=== PATIENT | male | born 2000 | race African-American/Black ===

== ENCOUNTER 2023-02-28 23:29 | Inpatient (IN) | payer OTHER ==
[2023-03-01 00:11] VITALS: BMI 38.0
[2023-03-01] MEDS ORDERED: POLYETHYLENE GLYCOL (HEALTHYLAX) 3350 17 GM PACKET PO PRN (03:26)
[2023-03-01] MEDS ORDERED: IBUPROFEN 600 MG TABLET (FP) PO PRN (03:26)
[2023-03-01] MEDS ORDERED: IBUPROFEN 400 MG TABLET (FP) PO PRN (03:26)
[2023-03-01] MEDS ORDERED: METHOCARBAMOL 500 MG TABLET PO PRN (03:26)
[2023-03-01] MEDS ORDERED: ONDANSETRON *ODT* 4 MG TABLET SL PRN (03:26)
[2023-03-01] MEDS ORDERED: ACETAMINOPHEN 325 MG TABLET (FP) PO PRN (03:26)
[2023-03-01] MEDS ORDERED: MAG HYDROX/AL HYDROX/SIMETH 30 ML UNIT-DOSE CUP PO PRN (03:26)
[2023-03-01] MEDS ORDERED: DICYCLOMINE HCL 10 MG CAPSULE PO PRN (03:26)
[2023-03-01] MEDS ORDERED: LOPERAMIDE HCL 2 MG CAPSULE PO PRN (03:26)
[2023-03-01] MEDS ORDERED: MAGNESIUM HYDROX 2400MG/30ML ORAL SUSPENSION 30 ML CUP PO PRN (03:26)
[2023-03-01] MEDS ORDERED: BENZONATATE 200 MG CAPSULE PO PRN (03:26)
[2023-03-01] MEDS ORDERED: NALOXONE HCL (KLOXXADO) 8 MG SPRAY NS PRN (03:26)
[2023-03-01] MEDS ORDERED: BISMUTH SUBSALICYLATE 524 MG/30 ML PO PRN (03:26)
[2023-03-01] MEDS ORDERED: NICOTINE 10 MG CARTRIDGE (INHALER) IH PRN (03:26)
[2023-03-01] MEDS ORDERED: NALOXONE HCL 0.4 MG/ML VIAL IM PRN (03:26)
[2023-03-01] MEDS ORDERED: BENZOCAINE/MENTHOL (CHLORASEPTIC ) LOZENGE MM PRN (03:26)
[2023-03-01] MEDS ORDERED: guaiFENesin 600 MG TABLET.ER (FP) PO PRN (03:26)
[2023-03-01] MEDS ORDERED: diazePAM 5 MG TABLET PO PRN (09:32)
[2023-03-01] MEDS: diazePAM 5 MG TABLET PO SCH ×3 (10:22→22:05)
[2023-03-01] MEDS: PRENATAL VITAMINS W/ FOLIC ACID TABLET (FP) PO SCH (10:22)
[2023-03-01] MEDS: NICOTINE 14 MG/24 HOURS TOPICAL PATCH TD SCH (10:23)
[2023-03-01 11:51] LABS: HIV INTERPRETATION NEGATIVE (NEGATIVE)
[2023-03-01] MEDS: ESTRADIOL 2 MG TABLET (NON-FORMULARY) PO SCH (15:16)
[2023-03-01] MEDS: THIAMINE HCL 100 MG TABLET (FP) PO SCH (22:04)
[2023-03-01] MEDS: SPIRONOLACTONE 25 MG TABLET PO SCH (22:04)
[2023-03-01] MEDS: MELATONIN 5 MG TABLETS PO SCH (22:04)
[2023-03-02] MEDS: diazePAM 5 MG TABLET PO SCH ×4 (05:33→22:07)
[2023-03-02] MEDS: SPIRONOLACTONE 25 MG TABLET PO SCH ×2 (10:11→22:07)
[2023-03-02] MEDS: NICOTINE 14 MG/24 HOURS TOPICAL PATCH TD SCH (10:12)
[2023-03-02] MEDS: ESTRADIOL 2 MG TABLET (NON-FORMULARY) PO SCH (10:12)
[2023-03-02] MEDS: PRENATAL VITAMINS W/ FOLIC ACID TABLET (FP) PO SCH (10:12)
[2023-03-02] MEDS: MELATONIN 5 MG TABLETS PO SCH (22:06)
[2023-03-02] MEDS: THIAMINE HCL 100 MG TABLET (FP) PO SCH (22:07)
[2023-03-03] MEDS: diazePAM 5 MG TABLET PO SCH ×3 (05:36→22:05)
[2023-03-03] MEDS: PRENATAL VITAMINS W/ FOLIC ACID TABLET (FP) PO SCH (10:09)
[2023-03-03] MEDS: SPIRONOLACTONE 25 MG TABLET PO SCH ×2 (10:09→22:05)
[2023-03-03] MEDS: NICOTINE 14 MG/24 HOURS TOPICAL PATCH TD SCH (10:11)
[2023-03-03] MEDS: ESTRADIOL 2 MG TABLET (NON-FORMULARY) PO SCH (10:43)
[2023-03-03] MEDS: MELATONIN 5 MG TABLETS PO SCH (22:05)
[2023-03-03] MEDS: THIAMINE HCL 100 MG TABLET (FP) PO SCH (22:06)
[2023-03-04] MEDS: diazePAM 5 MG TABLET PO SCH ×2 (05:19→17:32)
[2023-03-04] MEDS: ESTRADIOL 2 MG TABLET (NON-FORMULARY) PO SCH (10:02)
[2023-03-04] MEDS: SPIRONOLACTONE 25 MG TABLET PO SCH ×2 (10:02→22:17)
[2023-03-04] MEDS: PRENATAL VITAMINS W/ FOLIC ACID TABLET (FP) PO SCH (10:02)
[2023-03-04] MEDS: NICOTINE 14 MG/24 HOURS TOPICAL PATCH TD SCH (10:02)
[2023-03-04] MEDS: MELATONIN 5 MG TABLETS PO SCH (22:14)
[2023-03-04] MEDS: THIAMINE HCL 100 MG TABLET (FP) PO SCH (22:14)
[2023-03-05] MEDS ORDERED: diazePAM 5 MG TABLET PO ONE (06:00)
[2023-03-05 08:55] VITALS: BP 119/63; PULSE 83; RESP 18; TEMP 98.2
[2023-03-05] MEDS: SPIRONOLACTONE 25 MG TABLET PO SCH (09:23)
[2023-03-05] MEDS: PRENATAL VITAMINS W/ FOLIC ACID TABLET (FP) PO SCH (09:23)
[2023-03-05] MEDS: ESTRADIOL 2 MG TABLET (NON-FORMULARY) PO SCH (09:24)
[2023-03-05] MEDS: NICOTINE 14 MG/24 HOURS TOPICAL PATCH TD SCH (09:24)
== END 2023-03-05 10:06 | disposition other institution (70) | DRG 775 ==
LOC: YASAS 23:29 → UNDOADMIN 03-01 02:12 → Y3N 03-01 02:12
PROVIDERS: ADMIT Allergy & Immunology; ATTEND Surgery
PROC: HZ2ZZZZ Detoxification Services for Substance Abuse Treatment (ICD-10-PCS; principal; 2023-03-01)
DX: F10.230 Alcohol dependence with withdrawal, uncomplicated (principal); F17.210 Nicotine dependence, cigarettes, uncomplicated; F41.8 Other specified anxiety disorders; F32.A Depression, unspecified; F90.9 Attention-deficit hyperactivity disorder, unspecified type; F64.0 Transsexualism; J45.909 Unspecified asthma, uncomplicated; Z62.810 Personal history of physical and sexual abuse in childhood; Z86.59 Personal history of other mental and behavioral disorders; Z79.890 Hormone replacement therapy
CPT/HCPCS: 36415; 86780; 87389; 87635; 93005; 93010

== ENCOUNTER 2023-05-01 16:19 | Inpatient (IN) | payer OTHER ==
[2023-05-01 17:32] VITALS: BMI 40.8
[2023-05-01] MEDS ORDERED: IBUPROFEN 600 MG TABLET (FP) PO PRN (21:01)
[2023-05-01] MEDS ORDERED: LOPERAMIDE HCL 2 MG CAPSULE PO PRN (21:01)
[2023-05-01] MEDS ORDERED: MAGNESIUM HYDROX 2400MG/30ML ORAL SUSPENSION 30 ML CUP PO PRN (21:01)
[2023-05-01] MEDS ORDERED: P-EPHED 60MG/TRIPROLIDI 2.5MG TABLET PO PRN (21:01)
[2023-05-01] MEDS ORDERED: MAG HYDROX/AL HYDROX/SIMETH 30 ML UNIT-DOSE CUP PO PRN (21:01)
[2023-05-01] MEDS ORDERED: BENZOCAINE/MENTHOL (CHLORASEPTIC ) LOZENGE MM PRN (21:01)
[2023-05-01] MEDS ORDERED: BENZONATATE 200 MG CAPSULE PO PRN (21:01)
[2023-05-01] MEDS ORDERED: ACETAMINOPHEN 325 MG TABLET (FP) PO PRN (21:01)
[2023-05-01] MEDS ORDERED: IBUPROFEN 400 MG TABLET (FP) PO PRN (21:01)
[2023-05-01] MEDS ORDERED: guaiFENesin 600 MG TABLET.ER (FP) PO PRN (21:01)
[2023-05-01] MEDS ORDERED: POLYETHYLENE GLYCOL (HEALTHYLAX) 3350 17 GM PACKET PO PRN (21:01)
[2023-05-01] MEDS ORDERED: AMMONIUM LACTATE 12% LOTION 225 GM BOTTLE TP PRN (21:01)
[2023-05-01] MEDS ORDERED: COLLOIDAL OATMEAL 1 BAR EACH TP PRN (21:01)
[2023-05-01] MEDS ORDERED: NICOTINE POLACRILEX 2 MG GUM BUC PRN (21:01)
[2023-05-01] MEDS: MELATONIN 5 MG TABLETS PO SCH (22:24)
[2023-05-01] MEDS: THIAMINE HCL 100 MG TABLET (FP) PO SCH (22:24)
[2023-05-01 23:00] VITALS: RESP 18
[2023-05-02] MEDS: PRENATAL VITAMINS W/ FOLIC ACID TABLET (FP) PO SCH (10:01)
[2023-05-02 11:08] LABS: HEMATOCRIT 39.7 % (35.4-49); HEMOGLOBIN 13.5 GM/dL (11.7-16.9); MCH 28.8 pg (25.7-33.7); MEAN CELL VOLUME 84.7 fl (80-96); MEAN PLT VOLUME 7.9 fl (7.5-11.1); PLATELET COUNT 245 10^3/uL (134-434); RBC 4.69 M/mm3 (4.00-5.60); RDW 14.2 % (11.9-15.9); WHITE BLOOD COUNT 5.9 K/mm3 (4.0-10.0)
[2023-05-02 11:17] LABS: POTASSIUM 4.4 mmol/L (3.5-5.1)
[2023-05-02 11:19] LABS: CALCIUM 8.6 mg/dL (8.5-10.1)
[2023-05-02 11:20] LABS: ALBUMIN 3.1 g/dl (3.4-5.0); BLOOD UREA NITROGEN 12.2 mg/dL (7-18)
[2023-05-02 11:23] LABS: CREATININE 0.8 mg/dL (0.55-1.3)
[2023-05-02 11:24] LABS: BILIRUBIN,TOTAL 0.1 mg/dL (0.2-1)
[2023-05-02] MEDS: GABAPENTIN 300 MG CAPSULE PO SCH (19:59)
[2023-05-02 21:11] LABS: URINE APPEARANCE CLEAR; URINE BILIRUBIN NEGATIVE (NEGATIVE); URINE COLOR YELLOW; URINE GLUCOSE (UA) NEGATIVE (NEGATIVE); URINE KETONE NEGATIVE (NEGATIVE); URINE LEUK ESTERASE NEGATIVE (NEGATIVE); URINE NITRITE NEGATIVE (NEGATIVE); URINE PROTEIN NEGATIVE (NEGATIVE); URINE UROBILINOGEN 0.2 mg/dL (0.2-1.0)
[2023-05-02] MEDS: THIAMINE HCL 100 MG TABLET (FP) PO SCH (21:20)
[2023-05-02] MEDS: MELATONIN 5 MG TABLETS PO SCH (21:20)
[2023-05-03] MEDS: PRENATAL VITAMINS W/ FOLIC ACID TABLET (FP) PO SCH (12:42)
[2023-05-03] MEDS: GABAPENTIN 300 MG CAPSULE PO SCH (22:14)
[2023-05-03] MEDS: MELATONIN 5 MG TABLETS PO SCH (22:14)
[2023-05-03] MEDS: THIAMINE HCL 100 MG TABLET (FP) PO SCH (22:14)
[2023-05-04] MEDS: PRENATAL VITAMINS W/ FOLIC ACID TABLET (FP) PO SCH (10:22)
[2023-05-04] MEDS: GABAPENTIN 300 MG CAPSULE PO SCH (19:18)
[2023-05-04] MEDS: THIAMINE HCL 100 MG TABLET (FP) PO SCH (21:34)
[2023-05-04] MEDS: MELATONIN 5 MG TABLETS PO SCH (21:34)
[2023-05-05] MEDS: PRENATAL VITAMINS W/ FOLIC ACID TABLET (FP) PO SCH (10:17)
[2023-05-05] MEDS: THIAMINE HCL 100 MG TABLET (FP) PO SCH (21:36)
[2023-05-05] MEDS: MELATONIN 5 MG TABLETS PO SCH (21:36)
[2023-05-05] MEDS: GABAPENTIN 300 MG CAPSULE PO SCH (21:36)
[2023-05-06] MEDS: PRENATAL VITAMINS W/ FOLIC ACID TABLET (FP) PO SCH (11:33)
[2023-05-06] MEDS: GABAPENTIN 300 MG CAPSULE PO SCH (21:29)
[2023-05-06] MEDS: THIAMINE HCL 100 MG TABLET (FP) PO SCH (21:29)
[2023-05-06] MEDS: MELATONIN 5 MG TABLETS PO SCH (21:30)
[2023-05-07] MEDS: hydrOXYzine PAMOATE 25 MG CAPSULE (FP) PO PRN (00:31)
[2023-05-07] MEDS: PRENATAL VITAMINS W/ FOLIC ACID TABLET (FP) PO SCH (10:03)
[2023-05-07] MEDS: GABAPENTIN 300 MG CAPSULE PO SCH (20:03)
[2023-05-07] MEDS: THIAMINE HCL 100 MG TABLET (FP) PO SCH (21:40)
[2023-05-07] MEDS: MELATONIN 5 MG TABLETS PO SCH (21:40)
[2023-05-08] MEDS: PRENATAL VITAMINS W/ FOLIC ACID TABLET (FP) PO SCH (10:20)
[2023-05-08] MEDS: GABAPENTIN 300 MG CAPSULE PO SCH (20:41)
[2023-05-08] MEDS: THIAMINE HCL 100 MG TABLET (FP) PO SCH (21:01)
[2023-05-08] MEDS: MELATONIN 5 MG TABLETS PO SCH (21:01)
[2023-05-08] MEDS: hydrOXYzine PAMOATE 25 MG CAPSULE (FP) PO PRN (21:28)
[2023-05-09] MEDS: PRENATAL VITAMINS W/ FOLIC ACID TABLET (FP) PO SCH (10:06)
[2023-05-09] MEDS ORDERED: SPIRONOLACTONE 25 MG TABLET PO SCH (11:45)
[2023-05-09] MEDS ORDERED: PATIENT'S OWN MEDICATION (NON-FORMULARY) (Estradiol [Estrace] 1 MG Tablet) PO SCH (11:45)
[2023-05-09] MEDS: MELATONIN 5 MG TABLETS PO SCH (21:27)
[2023-05-09] MEDS: THIAMINE HCL 100 MG TABLET (FP) PO SCH (21:27)
[2023-05-09] MEDS: GABAPENTIN 300 MG CAPSULE PO SCH (21:27)
[2023-05-10] MEDS: PRENATAL VITAMINS W/ FOLIC ACID TABLET (FP) PO SCH (10:10)
[2023-05-10] MEDS: GABAPENTIN 300 MG CAPSULE PO SCH (22:11)
[2023-05-10] MEDS: THIAMINE HCL 100 MG TABLET (FP) PO SCH (22:11)
[2023-05-10] MEDS: MELATONIN 5 MG TABLETS PO SCH (22:11)
[2023-05-10] MEDS: hydrOXYzine PAMOATE 25 MG CAPSULE (FP) PO PRN (23:17)
[2023-05-11] MEDS: PRENATAL VITAMINS W/ FOLIC ACID TABLET (FP) PO SCH (10:08)
[2023-05-11] MEDS: hydrOXYzine PAMOATE 25 MG CAPSULE (FP) PO PRN (15:56)
[2023-05-11] MEDS: THIAMINE HCL 100 MG TABLET (FP) PO SCH (21:54)
[2023-05-11] MEDS: MELATONIN 5 MG TABLETS PO SCH (21:54)
[2023-05-11] MEDS: GABAPENTIN 300 MG CAPSULE PO SCH (21:54)
[2023-05-12 07:08] VITALS: BP 106/60; PULSE 67; TEMP 97.9
[2023-05-12] MEDS: PRENATAL VITAMINS W/ FOLIC ACID TABLET (FP) PO SCH (10:25)
== END 2023-05-12 11:00 | disposition left against medical advice (07) | DRG 772 ==
LOC: YASAS 16:19 → Y5N 21:55
PROVIDERS: ADMIT Allergy & Immunology; ATTEND Psychiatry & Neurology Pain Medicine
PROC: HZ42ZZZ Group Counseling for Substance Abuse Treatment, Cognitive-Behavioral (ICD-10-PCS; principal; 2023-05-01)
DX: F10.20 Alcohol dependence, uncomplicated (principal); F14.20 Cocaine dependence, uncomplicated; F17.210 Nicotine dependence, cigarettes, uncomplicated; F41.9 Anxiety disorder, unspecified; F32.A Depression, unspecified; F64.0 Transsexualism; G43.909 Migraine, unspecified, not intractable, without status migrainosus; F91.8 Other conduct disorders; Z91.199 Patient's noncompliance with other medical treatment and regimen due to unspecified reason
CPT/HCPCS: 36415; 80053; 81003; 85027; 86780; 87635

== ENCOUNTER 2024-04-28 19:07 | Inpatient (IN) | payer OTHER ==
[2024-04-28 19:43] VITALS: BMI 36.0
[2024-04-28] MEDS ORDERED: NICOTINE POLACRILEX 2 MG LOZENGE BC PRN (20:16)
[2024-04-28] MEDS ORDERED: POLYETHYLENE GLYCOL (HEALTHYLAX) 3350 17 GM PACKET PO PRN (20:16)
[2024-04-28] MEDS ORDERED: guaiFENesin 600 MG TABLET.ER (FP) PO PRN (20:16)
[2024-04-28] MEDS ORDERED: ONDANSETRON *ODT* 4 MG TABLET SL PRN (20:16)
[2024-04-28] MEDS ORDERED: MAG HYDROX/AL HYDROX/SIMETH 30 ML UNIT-DOSE CUP PO PRN (20:16)
[2024-04-28] MEDS ORDERED: ACETAMINOPHEN 325 MG TABLET (FP) PO PRN (20:16)
[2024-04-28] MEDS ORDERED: P-EPHED 60MG/TRIPROLIDI 2.5MG TABLET PO PRN (20:16)
[2024-04-28] MEDS ORDERED: IBUPROFEN 600 MG TABLET (FP) PO PRN (20:16)
[2024-04-28] MEDS ORDERED: METHOCARBAMOL 500 MG TABLET PO PRN (20:16)
[2024-04-28] MEDS ORDERED: NICOTINE POLACRILEX 2 MG GUM BUC PRN (20:16)
[2024-04-28] MEDS ORDERED: BENZONATATE 200 MG CAPSULE PO PRN (20:16)
[2024-04-28] MEDS ORDERED: BISMUTH SUBSALICYLATE 524 MG/30 ML PO PRN (20:16)
[2024-04-28] MEDS ORDERED: BENZOCAINE/MENTHOL (CHLORASEPTIC ) LOZENGE MM PRN (20:16)
[2024-04-28] MEDS ORDERED: LOPERAMIDE HCL 2 MG CAPSULE PO PRN (20:16)
[2024-04-28] MEDS ORDERED: MAGNESIUM HYDROX 2400MG/30ML ORAL SUSPENSION 30 ML CUP PO PRN (20:16)
[2024-04-28] MEDS ORDERED: IBUPROFEN 400 MG TABLET (FP) PO PRN (20:16)
[2024-04-28] MEDS: MELATONIN 5 MG TABLETS PO SCH (23:21)
[2024-04-28] MEDS: THIAMINE 100 MG TABLET PO SCH (23:21)
[2024-04-29] MEDS: lamoTRIgine 25 MG TABLET PO SCH (10:39)
[2024-04-29] MEDS: PRENATAL VITAMINS W/ FOLIC ACID TABLET (FP) PO SCH (10:39)
[2024-04-29] MEDS: GABAPENTIN 100 MG CAPSULE PO SCH (14:04)
[2024-04-29] MEDS: DICYCLOMINE HCL 10 MG CAPSULE PO PRN (18:37)
[2024-04-29] MEDS: hydrOXYzine PAMOATE 25 MG CAPSULE (FP) PO PRN (18:37)
[2024-04-30 05:55] VITALS: RESP 17
[2024-04-30 08:27] VITALS: BP 120/60; PULSE 61; TEMP 97.7
[2024-04-30] MEDS: SPIRONOLACTONE 25 MG TABLET PO SCH (09:31)
[2024-04-30] MEDS ORDERED: ESTRADIOL 2 MG TABLET (NON-FORMULARY) PO SCH (11:10)
[2024-04-30 15:01] LABS: HEMATOCRIT 41.6 % (35.4-49); HEMOGLOBIN 13.5 GM/dL (11.7-16.9); MCH 28.4 pg (25.7-33.7); MCHC 32.3 g/dl (32.0-35.9); MEAN CELL VOLUME 87.9 fl (80-96); MEAN PLT VOLUME 9.3 fl (7.5-11.1); PLATELET COUNT 228 10^3/uL (134-434); RBC 4.74 M/mm3 (4.00-5.60); RDW 14.6 % (11.9-15.9); WHITE BLOOD COUNT 6.3 K/mm3 (4.0-10.0)
[2024-04-30 15:31] LABS: POTASSIUM 4.2 mmol/L (3.5-5.1)
[2024-04-30 15:33] LABS: CALCIUM 8.6 mg/dL (8.5-10.1)
[2024-04-30 15:34] LABS: ALBUMIN 3.2 g/dl (3.4-5.0)
[2024-04-30 15:35] LABS: BLOOD UREA NITROGEN 10.2 mg/dL (7-18)
[2024-04-30 15:37] LABS: CREATININE 0.8 mg/dL (0.55-1.3)
[2024-04-30 15:39] LABS: BILIRUBIN,TOTAL 0.1 mg/dL (0.2-1); TOT PROT 6.4 g/dl (6.4-8.2)
== END 2024-04-30 10:26 | disposition home or self-care (01) | DRG 775 ==
LOC: YASAS 19:07 → Y3N 20:47
PROVIDERS: ADMIT Allergy & Immunology; ATTEND Surgery
PROC: HZ2ZZZZ Detoxification Services for Substance Abuse Treatment (ICD-10-PCS; principal; 2024-04-28)
DX: F10.230 Alcohol dependence with withdrawal, uncomplicated (principal); F17.210 Nicotine dependence, cigarettes, uncomplicated; F19.94 Other psychoactive substance use, unspecified with psychoactive substance-induced mood disorder; F19.980 Other psychoactive substance use, unspecified with psychoactive substance-induced anxiety disorder; F64.8 Other gender identity disorders; Z62.810 Personal history of physical and sexual abuse in childhood; Z56.0 Unemployment, unspecified
CPT/HCPCS: 36415; 80053; 80305; 80307; 85027; 86780

== ENCOUNTER 2024-10-04 15:13 | Inpatient (IN) | payer OTHER ==
[2024-10-04 15:51] VITALS: BMI 39.4
[2024-10-04] MEDS ORDERED: MAG HYDROX/AL HYDROX/SIMETH 30 ML UNIT-DOSE CUP PO PRN (16:23)
[2024-10-04] MEDS ORDERED: P-EPHED 60MG/TRIPROLIDI 2.5MG TABLET PO PRN (16:23)
[2024-10-04] MEDS ORDERED: POLYETHYLENE GLYCOL (HEALTHYLAX) 3350 17 GM PACKET PO PRN (16:23)
[2024-10-04] MEDS ORDERED: NALOXONE (NARCAN) HCL 4 MG/0.1 ML SPRAY NS PRN (16:23)
[2024-10-04] MEDS ORDERED: hydrOXYzine PAMOATE 25 MG CAPSULE (FP) PO PRN (16:23)
[2024-10-04] MEDS ORDERED: IBUPROFEN 400 MG TABLET (FP) PO PRN (16:23)
[2024-10-04] MEDS ORDERED: IBUPROFEN 600 MG TABLET (FP) PO PRN (16:23)
[2024-10-04] MEDS ORDERED: NICOTINE POLACRILEX 2 MG LOZENGE BC PRN (16:23)
[2024-10-04] MEDS ORDERED: BENZOCAINE/MENTHOL (CHLORASEPTIC ) LOZENGE MM PRN (16:23)
[2024-10-04] MEDS ORDERED: guaiFENesin 600 MG TABLET.ER (FP) PO PRN (16:23)
[2024-10-04] MEDS ORDERED: BENZONATATE 200 MG CAPSULE PO PRN (16:23)
[2024-10-04] MEDS ORDERED: LOPERAMIDE HCL 2 MG CAPSULE PO PRN (16:23)
[2024-10-04] MEDS ORDERED: MAGNESIUM HYDROX 2400MG/30ML ORAL SUSPENSION 30 ML CUP PO PRN (16:23)
[2024-10-04] MEDS ORDERED: ACETAMINOPHEN 325 MG TABLET (FP) PO PRN (16:23)
[2024-10-04] MEDS ORDERED: NICOTINE POLACRILEX 2 MG GUM BUC PRN (16:23)
[2024-10-04] MEDS: MELATONIN 5 MG TABLETS PO SCH (22:16)
[2024-10-04] MEDS: THIAMINE 100 MG TABLET PO SCH (22:17)
[2024-10-04] MEDS: LIDOCAINE PATCH REMOVAL MC SCH (22:18)
[2024-10-04 23:39] LABS: PH,URINE 5.5 (5.0-8.0); URINE APPEARANCE TURBID; URINE BILIRUBIN NEGATIVE (NEGATIVE); URINE COLOR YELLOW; URINE GLUCOSE (UA) NEGATIVE (NEGATIVE); URINE KETONE TRACE (NEGATIVE); URINE LEUK ESTERASE NEGATIVE (NEGATIVE); URINE NITRITE NEGATIVE (NEGATIVE); URINE PROTEIN NEGATIVE (NEGATIVE)
[2024-10-05] MEDS ORDERED: LIDOCAINE 5% TOPICAL PATCH TP PRN (10:00)
[2024-10-05] MEDS: PRENATAL VITAMINS W/ FOLIC ACID TABLET (FP) PO SCH (10:30)
[2024-10-05 11:28] LABS: CHLORIDE 107 mmol/L (98-107); POTASSIUM 4.3 mmol/L (3.5-5.1); SODIUM 137 mmol/L (136-145)
[2024-10-05 11:31] LABS: HEMATOCRIT 38.7 % (32.4-45.2); HEMOGLOBIN 12.8 GM/dL (10.7-15.3); MCH 28.5 pg (25.7-33.7); MEAN CELL VOLUME 86.4 fl (80-96); MEAN PLT VOLUME 8.1 fl (7.5-11.1); PLATELET COUNT 232 10^3/uL (134-434); RBC 4.48 M/mm3 (3.60-5.2); WHITE BLOOD COUNT 5.9 K/mm3 (4.0-10.0)
[2024-10-05 11:34] LABS: ALBUMIN 3.2 g/dl (3.4-5.0); ANION GAP 4 mmol/L (4-13); CALCIUM 8.9 mg/dL (8.5-10.1); CO2 26 mmol/L (21-32)
[2024-10-05 11:35] LABS: BLOOD UREA NITROGEN 16.9 mg/dL (7-18); GLUCOSE,RANDOM 84 mg/dL (74-106)
[2024-10-05 11:36] LABS: SGPT/ALT 32 U/L (13-61)
[2024-10-05 11:37] LABS: SGOT/AST 20 U/L (15-37)
[2024-10-05 11:38] LABS: BILIRUBIN,TOTAL 0.2 mg/dL (0.2-1); CREATININE 0.7 mg/dL (0.55-1.3); TOT PROT 6.5 g/dl (6.4-8.2)
[2024-10-05 11:39] LABS: ALK PHOS 61 U/L (45-117)
[2024-10-05] MEDS: GABAPENTIN 300 MG CAPSULE PO SCH (22:04)
[2024-10-05] MEDS: risperiDONE 2 MG TABLET PO SCH (22:04)
[2024-10-06 06:41] VITALS: TEMP 98
[2024-10-06 09:21] VITALS: BP 116/68; PULSE 73; RESP 18
[2024-10-06] MEDS: NALOXONE (NYS OPIOID OVERDOSE PROGRAM) 4 MG/0.1 ML SPRAY NS SCH (09:55)
== END 2024-10-06 13:47 | disposition home or self-care (01) | DRG 772 ==
LOC: YASAS 15:13 → Y3NR 18:36
PROVIDERS: ADMIT Psychiatry & Neurology Pain Medicine; ATTEND Psychiatry & Neurology Pain Medicine
PROC: HZ42ZZZ Group Counseling for Substance Abuse Treatment, Cognitive-Behavioral (ICD-10-PCS; principal; 2024-10-04)
DX: F10.20 Alcohol dependence, uncomplicated (principal); F12.20 Cannabis dependence, uncomplicated; F17.210 Nicotine dependence, cigarettes, uncomplicated; F19.280 Other psychoactive substance dependence with psychoactive substance-induced anxiety disorder; F19.24 Other psychoactive substance dependence with psychoactive substance-induced mood disorder; F39 Unspecified mood [affective] disorder; F32.A Depression, unspecified; F64.0 Transsexualism; J45.909 Unspecified asthma, uncomplicated; Z99.89 Dependence on other enabling machines and devices
CPT/HCPCS: 36415; 80053; 80305; 80307; 81003; 85027; 86780; 87811